=== PATIENT | female | born 1960 | race Caucasian/White ===

== ENCOUNTER → 2016-06-23 | Outpatient (CLI) | payer BC ==
[~2016-06-23] MED LIST: BIRTH CONTROL PILL PO
--- NOTE | ~2016-06-23 | MY11 ---
[facility] A Service of [facility] RADIOLOGY TEXT RESULTS PATIENT: KAMI BELLA LOCATION: [facility] : 64 UNIT #: [id number] AGE: [address]: Claire Munoz MD SEX: F ORDER DR: [id number] [facility] [address] [place], [place] [address] [id number] O MR#: [id number] Acc #: [id number] NAME: KAMI BELLA : 1960 SEX: F STUDY DATE/TIME: 06/23/2016 10:29 UNIT: [facility] ROOM: STUDY DESCRIPTION: MY Mammogram Screening Dig Sandip Attending Physician: Claire Munoz M.D. Ordering Physician: Claire Munoz M.D. Primary Care Physician: Claire Munoz M.D. MEDICAL IMAGING REPORT This report is preliminary unless electronic signature is present EXAM Bilateral digital screening mammogram with CAD DATE: 06/23/2016 HISTORY 55-year-old female. No personal or family history of breast cancer or current complaints. COMPARISON Bilateral screening mammogram 08/12/2013, 08/09/2012 FINDINGS CC and MLO views were obtained of each breast utilizing digital technique and reviewed with an FDA-approved CAD device. Scattered fibroglandular densities are present bilaterally. There is asymmetric increased density in the superior hemisphere left breast central third which appears stable. A linear skin markers was placed over the subareolar left breast in the area of skin thickening and retraction consistent with postsurgical change, similar to prior exam. No new or suspicious nodule, nonsurgical architectural distortion or suspicious clustered microcalcification is identified. IMPRESSION 1. BIRADS 2. Benign findings. Routine bilateral screening mammogram is recommended in year. Patients over the age of 40 are entered into a reminder system with target due date for the next mammogram. A result letter will also be sent to the patient. BIRADS: 2 p- benign findings. [facility] A Service of [facility] RADIOLOGY TEXT RESULTS PATIENT: KAMI BELLA LOCATION: [facility] : 64 UNIT #: [id number] AGE: [address]: Claire Munoz MD SEX: F ORDER DR: Dictated by... Taylor Morton M.D. THIS IS AN ELECTRONICALLY VERIFIED REPORT Taylor Morton M.D. at 06/24/2016 7:11 AM JUNIE/misha TD: 06/23/2016 13:12 JOB #: [id number] MEDICAL IMAGING REPORT Page 1 of 1 COPY
== END | disposition home or self-care (01) ==
LOC: CWCC 09:40
DX: Z12.31 Encounter for screening mammogram for malignant neoplasm of breast (principal)
CPT/HCPCS: G0202